=== PATIENT | male | born 1975 | race Hispanic/Latino ===

== ENCOUNTER 2020-09-08 05:42 | Day surgery (SDC) | payer OTHER ==
[2020-09-01 10:52] LABS: BASOPHILS % (AUTO) 0.6 % (0.0-5.0); EOSINOPHILS % (AUTO) 0.6 % (0.0-8.0); HEMATOCRIT 47.4 % (42-54); LYMPHOCYTES % (AUTO) 26.5 % (21.0-51.0); MEAN CORPUSCULAR HEMOGLOBIN 30.2 pg (27.0-33.0); MEAN CORPUSCULAR HGB CONC 32.9 g/dL (32.0-36.0); MEAN CORPUSCULAR VOLUME 91.9 fL (79-99); MONOCYTES % (AUTO) 6.6 % (3.0-13.0); NEUTROPHILS % (AUTO) 65.6 % (40.0-77.0); PLATELET COUNT (AUTO) 204 K/uL (130-400); RED BLOOD CELL COUNT(AUTO) 5.16 MIL/uL (4.50-6.20); WHITE BLOOD COUNT (AUTO) 6.9 K/uL (4.8-10.8)
[2020-09-01 11:07] LABS: CREATININE 0.9 mg/dL (0.5-1.5); POTASSIUM 4.7 mmol/L (3.5-5.1)
[2020-09-07 12:36] VITALS: BP 109/70
[2020-09-08] VITALS (17 sets, daily range): BP systolic 98–120; BP diastolic 46–94
[~2020-09-08] VITALS: Ht 182.9 cm; Wt 105.9 kg
[2020-09-08] MEDS: CEFAZOLIN SODIUM 1 GM VIAL IVP SCH ×2 (05:00→08:30)
[~2020-09-08 05:42] MED LIST: ATOR10TA69 PO; HYDR-4068 PO; METF-444 PO; VITAMIN D3 PO
[2020-09-08] MEDS ORDERED: SODIUM CHLORIDE 0.9% 1000ML 1,000 ML IV ONE (06:10)
[2020-09-08] MEDS ORDERED: EPINEPHRINE 1 MG/ML 30ML VIAL IJ ONE (06:57)
[2020-09-08] MEDS ORDERED: DEXAMETHASONE SOD PHOSPHATE 10MG/ML 1ML VIAL ONE (07:10)
[2020-09-08] MEDS ORDERED: ONDANSETRON HCL 4 MG/2 ML VIAL ONE (07:10)
[2020-09-08] MEDS ORDERED: LIDOCAINE PF 2% 5ML ABBOJECT ONE ×2 (07:10→07:11)
[2020-09-08] MEDS ORDERED: GLYCOPYRROLATE 1 MG/5 ML SYRINGE ONE (07:10)
[2020-09-08] MEDS ORDERED: PROPOFOL 10 MG/ML 20ML VIAL IV ONE ×2 (07:10→10:03)
[2020-09-08] MEDS ORDERED: NEOSTIGMINE 5MG/5ML SYR IV ONE (07:10)
[2020-09-08] MEDS ORDERED: FENTANYL CITRATE PF 50 MCG/1 ML 2ML VIAL ONE ×2 (07:10→09:55)
[2020-09-08] MEDS ORDERED: SUCCINYLCHOLINE CHLORIDE 20 MG/ML 10 ML VIAL ONE ×2 (07:10→08:23)
[2020-09-08] MEDS ORDERED: MIDAZOLAM HCL 1 MG/ML 2ML VIAL ONE (07:11)
[2020-09-08] MEDS ORDERED: ROCURONIUM 10MG/1ML SYR 10 MG/ML ML ONE (07:11)
[2020-09-08] MEDS ORDERED: ROPIVACAINE 0.5% 5MG/ML 30ML IJ ONE (08:26)
[2020-09-08] MEDS ORDERED: PHENYLEPHRINE HCL 10 MG/ML 1ML VIAL IV ONE (09:17)
[2020-09-08] MEDS ORDERED: CEPH500B PO (10:11)
[2020-09-08] MEDS ORDERED: HYDR-4453 PO (10:11)
[2020-09-08] MEDS ORDERED: MEPERIDINE-PF 25 MG/ML SYG ONE (10:12)
--- NOTE | 2020-09-08 12:15 | NUR ---
PT DISCHARGED HOME WITH . IV ACTH REMOVED INTACT FROM LT HAND. SMALL OPSITE DRESSING X 3 TO RT SHOULDER CLEAN DRY AND INTACT. RT ARM IN SLING. PT AWAKE AND ALERT SAND ANXIOUS TO GO HOME. PRINTED AND VERBAL DISCHARGE INSTRUCTIONS GIVEN TO PT AND HIS . VERBALIZE UNDERSTANDING. NO ACUTE DISTRESS NOTED. TO CAR VIA WHEELCHAIR
== END 2020-09-08 12:15 | disposition home or self-care (01) ==
LOC: DAH 05:42
PROVIDERS: ATTEND Orthopaedic Surgery
DX: M75.41 Impingement syndrome of right shoulder (principal); M19.011 Primary osteoarthritis, right shoulder; M75.81 Other shoulder lesions, right shoulder; M25.811 Other specified joint disorders, right shoulder; K21.9 Gastro-esophageal reflux disease without esophagitis; E78.5 Hyperlipidemia, unspecified; E11.9 Type 2 diabetes mellitus without complications; M77.8 Other enthesopathies, not elsewhere classified; F17.200 Nicotine dependence, unspecified, uncomplicated; G89.29 Other chronic pain; F43.10 Post-traumatic stress disorder, unspecified; Z20.828 Contact with and (suspected) exposure to other viral communicable diseases
CPT/HCPCS: 29822; 29824; 29826; 36415; 64415; 76942; 80048; 82948 ×2; 85025; A4215; A4216; A4221; A4222; A4223 ×2; A4565; A4600; A4606; A4649 ×3; A4663; A4930; A5120; A6204; C9803; G0168; J0171; J0330 ×2; J0690; J1100; J2001 ×2; J2175; J2250; J2370; J2405; J2704 ×2; J2710; J2795; J3010 ×2; J3490; J7030 ×2; U0003